=== PATIENT | female | born 1980 | race Caucasian/White ===

== ENCOUNTER → 2021-08-18 15:18 | Outpatient (CLI) | payer OTHER, SELFPAY ==
--- NOTE | ~2021-08-18 | MM_ITS ---
EXAMINATION: MM screening samy BI w shruthi HISTORY: Screening mammogram TECHNIQUE: Craniocaudal and mediolateral oblique 3-D tomosynthesis images were obtained and synthetic 2-D images were generated. CAD analysis was submitted and interpreted. COMPARISON: None, baseline BREAST PARENCHYMAL COMPOSITION: The breasts are heterogeneously dense, which may obscure small masses . FINDINGS: RIGHT BREAST: There is no evidence of suspicious mass, calcification, or architectural distortion to suggest malignancy. LEFT BREAST: An asymmetry is present in the anterior third of the lower breast 3 cm from the nipple o n the mediolateral oblique view. IMPRESSION: 1. Left breast asymmetry. 2. Additional mammographic views and possible breast ultrasound are recommended to evaluate for malig erwin and establish a baseline given that this is the first mammographic examination. BI-RADS Category 0: Incomplete: Needs additional imaging evaluation. Reviewed, dictated and finalized at location A. IMPRESSION: 1. Left breast asymmetry. 2. Additional mammographic views and possible breast ultrasound are recommended to evaluate for malignancy and establish a baseline given that this is the fir st mammographic examination. BI-RADS Category 0: Incomplete: Needs additional imaging evaluation.
== END ==
PROVIDERS: Visit Provider Nurse Practitioner Obstetrics & Gynecology
DX: Z12.31 Encounter for screening mammogram for malignant neoplasm of breast (principal); R92.8 Other abnormal and inconclusive findings on diagnostic imaging of breast
CPT/HCPCS: 77063; 77067

== ENCOUNTER → 2021-10-05 09:28 | Outpatient (CLI) | payer OTHER, SELFPAY ==
--- NOTE | ~2021-10-05 | MMUS_ITS ---
EXAMINATION: MM diagnostic samy LT w shruthi, US breast LT limited HISTORY: Left breast asymmetry on screening mammogram TECHNIQUE: Additional 3-D tomosynthesis images of the left breast were performed and synthetic 2-D im ages were generated. CAD analysis was submitted and interpreted. High resolution limited left breast ultrasound was performed. COMPARISON: 08/18/2021 BREAST PARENCHYMAL COMPOSITION: The breasts are heterogeneously dense, which may obscure small masses . FINDINGS: MAMMOGRAPHIC FINDINGS: No definite asymmetry persists with spot compression of the left breast. There is no suspicious calci fication or architectural distortion. ULTRASOUND: There is no evidence of focal abnormal solid or cystic mass in the vicinity of the mammographic findi ng in question. IMPRESSION: 1. No mammographic or sonographic evidence of malignancy. 2. Recommend routine screening mammography in one year. BI-RADS Category 1: Negative Reviewed, dictated and finalized at location A. FRAME TENDER IMPRESSION: 1. No mammographic or sonographic evidence of malignancy. 2. Recommend routine screening mammography in one year. BI-RADS Category 1: Negative
== END ==
PROVIDERS: PCP Registered Nurse; Visit Provider Nurse Practitioner Obstetrics & Gynecology
DX: R92.8 Other abnormal and inconclusive findings on diagnostic imaging of breast (principal)
CPT/HCPCS: 76642; 77061; 77065; G0279

== ENCOUNTER → 2022-12-21 13:12 | Outpatient (CLI) | payer OTHER, SELFPAY ==
--- NOTE | ~2022-12-21 | MM_ITS ---
EXAMINATION: MM screening samy BI w shruthi HISTORY: Screening mammogram TECHNIQUE: Craniocaudal and mediolateral oblique 3-D tomosynthesis images were obtained and synthetic 2-D images were generated. CAD analysis was submitted and interpreted. COMPARISON: 10/05/2021 diagnostic left mammogram and limited left breast ultrasound examination 08/18/2021 bilateral screening mammogram BREAST PARENCHYMAL COMPOSITION: The breasts are heterogeneously dense, which may obscure small masses . FINDINGS: There is no evidence of suspicious mass, calcification, or architectural distortion to sugg est malignancy in either breast. There has been no suspicious interval change. IMPRESSION: 1. No mammographic evidence of malignancy. 2. Recommend routine screening mammography in one year. BI-RADS Category 1: Negative Reviewed, dictated and finalized at location A. ICE ELECT[employer]ICIAN
== END ==
PROVIDERS: PCP Registered Nurse; Visit Provider Nurse Practitioner Obstetrics & Gynecology
DX: Z12.31 Encounter for screening mammogram for malignant neoplasm of breast (principal)
CPT/HCPCS: 77063; 77067

== ENCOUNTER 2023-04-25 09:58 | Outpatient (CLI) | payer OTHER, SELFPAY ==
--- NOTE | 2023-04-25 10:25 | ECG_ITS ---
Measurements Intervals Spencer Rate: 66 P: 53 NV: 141 QRS: -1 QRSD: 87 T: 40 QT: 388 QTc: 409 Interpretive Statements SINUS RHYTHM BASELINE ARTIFACT BORDERLINE ECG LOW QRS VOLTAGE IN PRECORDIAL LEADS NO PREVIOUS ECG AVAILABLE FOR COMPARISON Electronically Signed On 04-25-2023 17:06:55 CDT by Denny Villarreal M.D.
== END 2023-04-25 09:59 | disposition home or self-care (01) ==
LOC: ANHSURGERY 10:11
PROVIDERS: PCP Registered Nurse; Visit Provider Obstetrics & Gynecology
DX: E78.00 Pure hypercholesterolemia, unspecified (principal); Z01.818 Encounter for other preprocedural examination; R94.31 Abnormal electrocardiogram [ECG] [EKG]
CPT/HCPCS: 93005

== ENCOUNTER 2023-04-27 06:52 | Day surgery (SDC) | payer OTHER, SELFPAY ==
[2023-04-19 15:00] VITALS: BMI 31.6
--- NOTE | 2023-04-19 15:08 | PC.NURSE ---
Report to the Outpatient Waiting Room, entrance under the green pavilion located off [facility], at time 6:30 on date 04/27/23. Planned Procedure Time: 8:30. Time changes happen often and if your time is changed the preop area will call you the afternoon before. - You and your visitor will be asked to self-screen and do not enter if you have any COVID symptoms. - A mask is optional within the hospital at this time. Patients may have clear liquids (water, carbonated beverages, clear teas, apple juice) until 3 hours prior to surgery (5:30) with a maximum of 20 ounces. - No food from midnight until time of surgery Take the following medications with a SIP of water the morning of surgery: NONE DO NOT STOP ANY OF YOUR OTHER PRESCRIPTION MEDICATIONS PRIOR TO SURGERY EXCEPT THE FOLLOWING Medications to discontinue per physician: VITAMINS Date to take last dose: 04/23/23 Please no make-up, nail grenadian, hairspray, perfume, deodorant, or body powder the day of surgery. No jewelry (including any body piercings) or valuables the day of surgery, leave them at home. Please take a shower or bath the night before, or the morning of, surgery with an antibacterial soap. Wear comfortable, loose fitting clothing. - Jewelry must be removed prior to entering the operating room. Rings and piercings that are not removed may be cut off. - The hospital will not accept responsibility for valuables. - Please leave all valuables, including medications, at home the day of surgery. If you are going home after surgery, a licensed route sales driver must drive you home. - NO public transportation without another adult if you receive anesthesia. - We recommend that an adult stay with you for 24 hours following discharge. - We also recommend that you do not drive, make important decision, drink alcoholic beverages, or take any drugs that were not prescribed by your health care provider for at least 24 hours after your discharge time. Follow any additional instructions given to you from your surgeon. If you or anyone in your household have experienced Covid symptoms in the past week, please notify your surgeon or the nurse liaison at the phone number below for possible testing. Telephone instructions given to PT - RADHA LEMUS and asked if any additional questions and then verbalized understanding. Patient advised to call surgeon office or pre surgery nurse liaison [phone] if any additional questions.
--- NOTE | 2023-04-26 14:23 | WPDANESEPPF ---
Anes - Initial Pre Proc Eval Procedure: Operation Date: 04/27/23 09:15 Proposed Procedures p Laparoscopic Bilateral Salpingectomy - David Vargas MD Date/Time: 04/26/23 14:23 Surgeon: David Vargas MD Pre Op Diagnosis: Desires Sterilization Patient Data Age: 42 Gender: F Height: 1.78 m Weight: 99.8 kg Allergies Allergy/AdvReac Type Severity Reaction Status Date / Time No Known Allergies Allergy Verified 04/19/23 14:59 Home Medications Medication Instructions Recorded Confirmed Type multivitamin 1 tablet PO DAILY 04/19/23 04/19/23 History rosuvastatin 10 mg tablet 10 mg PO HS 04/19/23 04/19/23 History Results Review: All pre-operative results and documents have been reviewed as part of the pre-operative evaluation. [facility] Past Medical History Medical History (Updated 04/26/23 @ 14:24 by Garett Galvan MD) Hyperlipidemia Obesity Psoriasis Social History Social History Years smoked: 8 Smoking status: Former smoker Tobacco type: cigarettes Smoking end date: 11/14/16 Alcohol intake: current Alcohol use details: RARE Substance use: never Substance use type: does not use Living arrangements: with family Spiritual care concerns: No Anes - Eval Final PreProcedure Day of Procedure 04/26/23 14:23 Patient weight: obese Heart: regular rate and rhythm Lungs: clear to auscultation and normal air movement Airway: Mallampati scale class II Neurological: alert and oriented Last oral intake: >/= 8 hours ASA classification: II Emergent: no Anesthetic plan: proceed Anesthesia type and monitoring: general ETT Results Review: All pre-operative results and documents have been reviewed as part of the pre-operative evaluation. Informed Consent: The patient's anesthetic plan and its attendant risks and benefits were discussed with the patient/family/POA. Questions were solicited and answers provided to the satisfaction of the patient/family/POA.
--- NOTE | 2023-04-28 12:36 | SUR.PREOP ---
Paper documentation exists on this patient due to [facility] downtime on 04/27/23
--- NOTE | 2023-05-24 10:30 | WPDHPUPDATE1 ---
History and Physical Update Update Date/Time: 05/24/23 10:30 History and Physical has been reviewed, including an updated exam of the patient. There are NO changes in the patient's condition. Risks, benefits, and alternatives have been discussed and questions answered. Patient agrees to proceed with procedure.
--- NOTE | 2023-05-24 11:28 | W.PM.PROC2 ---
Procedure Note - Detailed Date of Procedure 05/24/23 Pre-op Diagnosis Desires Sterilization Post-op Diagnosis Same Procedure Performed Laparoscopic bilateral salpingectomy Surgeon David Vargas MD Anesthesia General Indications Unwanted fertility Findings Normal pelvic anatomy Description of Procedure The patient was taken the operating room. She was prepped and draped in the dorsal lithotomy position after induction of general anesthesia. A 5 mm skin incision was made in the left upper quadrant of the abdominal skin. A 5 mm trocar was inserted the intra-abdominal cavity under direct visualization of the scope. Pneumoperitoneum was achieved. A 5 mm trocar was inserted in the left lower quadrant identical fashion. A 5 mm infraumbilical trocar was inserted in identical fashion as well. The bilateral fallopian tubes were removed. This was done by using a LigaSure cautery. The mesosalpinx adjacent to the tube was cauterized transected with LigaSure. This was initiated in the area the ovary and in a stepwise fashion moved medially to the area of the cornu of the uterus. Once there the fallopian tube was cauterized and transected. This was done in identical fashion on each side. The fallopian tubes were taken out through the left lower quadrant trocar site. The pneumoperitoneum was reduced. The trocars removed. The skin was closed with subcuticular 4 Monocryl and covered with Dermabond. She was taken to cover stable condition. Sponge lap and needle counts were correct x2. Estimated Blood Loss 5 Drains No Packing No Pathology Yes Complications No immediate complications Condition Stable Disposition PACU
== END 2023-04-27 07:30 | disposition home or self-care (01) ==
LOC: ANHSURGERY 05-20 13:53
PROVIDERS: PCP Registered Nurse; Visit Provider Obstetrics & Gynecology
DX: Z30.2 Encounter for sterilization (principal); Z53.8 Procedure and treatment not carried out for other reasons
CPT/HCPCS: 99199

== ENCOUNTER 2023-05-24 04:11 | Day surgery (SDC) | payer OTHER, SELFPAY ==
[2023-05-16 11:44] VITALS: BMI 31.3
--- NOTE | 2023-05-16 11:46 | PC.NURSE ---
Report to the Outpatient Waiting Room, entrance under the green pavilion located off [facility], at time 0815 on date 05/24/23. Planned Procedure Time: 1015. Time changes happen often and if your time is changed the preop area will call you the afternoon before. - You and your visitor will be asked to self-screen and do not enter if you have any COVID symptoms. - A mask is optional within the hospital at this time. Patients may have clear liquids (water, carbonated beverages, clear teas, apple juice) until 3 hours prior to surgery with a maximum of 20 ounces. - No food from midnight until time of surgery Take the following medications with a SIP of water the morning of surgery: NONE DO NOT STOP ANY OF YOUR OTHER PRESCRIPTION MEDICATIONS PRIOR TO SURGERY ?EXCEPT THE FOLLOWING Medications to discontinue per physician: VITAMIN Date to take last dose: 05/20/23 Please no make-up, nail turkish, hairspray, perfume, deodorant, or body powder the day of surgery. No jewelry (including any body piercings) or valuables the day of surgery, leave them at home. Please take a shower or bath the night before, or the morning of, surgery with an antibacterial soap. Wear comfortable, loose fitting clothing. - Jewelry must be removed prior to entering the operating room. Rings and piercings that are not removed may be cut off. - The hospital will not accept responsibility for valuables. - Please leave all valuables, including medications, at home the day of surgery. If you are going home after surgery, a licensed car driver must drive you home. - NO public transportation without another adult if you receive anesthesia. - We recommend that an adult stay with you for 24 hours following discharge. - We also recommend that you do not drive, make important decision, drink alcoholic beverages, or take any drugs that were not prescribed by your health care provider for at least 24 hours after your discharge time. Follow any additional instructions given to you from your surgeon. If you or anyone in your household have experienced Covid symptoms in the past week, please notify your surgeon or the nurse liaison at the phone number below for possible testing. Telephone instructions given to PT - RADHA LEMUS and asked if any additional questions and then verbalized understanding. Patient advised to call surgeon office or pre surgery nurse liaison [phone] if any additional questions.
[2023-05-24 08:32] VITALS: BP 95/66; PULSE 73; RESP 20; TEMP 36.3; O2SAT 98
[2023-05-24] MEDS: ACETAMINOPHEN 500 MG TABLET 1000 MG PO (08:54)
[2023-05-24] MEDS: LACTATED RINGERS 1,000 ML 30 ML IV CONT (09:00)
[2023-05-24] MEDS: KETOROLAC 15 MG/ML VIAL (*BKC) IV PUSH (09:03)
--- NOTE | 2023-05-24 09:26 | WPDANESEPPF ---
Anes - Initial Pre Proc Eval Procedure: Operation Date: 05/24/23 10:15 Proposed Procedures p Bilateral Laparoscopic Salpingectomy - David Vargas MD Date/Time: 05/24/23 09:26 Surgeon: David Vargas MD Pre Op Diagnosis: Desires sterilization Patient Data Age: 43 Gender: F Height: 1.78 m Weight: 98.2 kg Last Vital Signs Temp 36.3 C L 05/24/23 08:32 Pulse 73 05/24/23 08:32 Resp 20 05/24/23 08:32 BP 95/66 L 05/24/23 08:32 Pulse Ox 98 05/24/23 08:32 Allergies Allergy/AdvReac Type Severity Reaction Status Date / Time No Known Allergies Allergy Verified 05/16/23 11:44 Home Medications Medication Instructions Recorded Confirmed Type multivitamin 1 tablet PO DAILY 04/19/23 05/24/23 History rosuvastatin 10 mg tablet 10 mg PO HS 04/19/23 05/24/23 History Patient hx anesthesia problems: none Family hx anesthesia problems: none Results Review: All pre-operative results and documents have been reviewed as part of the pre-operative evaluation. [facility] Past Medical History Medical History Hyperlipidemia Obesity Psoriasis Social History Social History Years smoked: 8 Smoking status: Former smoker Tobacco type: cigarettes Smoking end date: 11/14/16 Alcohol intake: current Alcohol use details: RARE Substance use: never Substance use type: does not use Living arrangements: with family Spiritual care concerns: No Anes - Eval Final PreProcedure Day of Procedure 05/24/23 09:26 Patient weight: obese Heart: regular rate and rhythm Lungs: clear to auscultation Airway: Mallampati scale class II and other (TMJ issues) Neurological: alert and oriented Last oral intake: >/= 8 hours ASA classification: II Emergent: no Anesthetic plan: proceed Anesthesia type and monitoring: general ETT and standard monitoring Results Review: All pre-operative results and documents have been reviewed as part of the pre-operative evaluation. Informed Consent: The patient's anesthetic plan and its attendant risks and benefits were discussed with the patient/family/POA. Questions were solicited and answers provided to the satisfaction of the patient/family/POA.
--- NOTE | 2023-05-24 10:30 | HP_ITS ---
This report was moved to the correct visit on 06/27/2023. Original report was signed by David Vargas MD on 05/24/231029. History and Physical Update Update Date/Time: 05/24/23 10:30 History and Physical has been reviewed, including an updated exam of the patient. There are NO changes in the patient's condition. Risks, benefits, and alternatives have been discussed and questions answered. Patient agrees to proceed with procedure. This report may have been done utilizing a voice recognition system. Attempts have been made to correct errors. However, there may be uncorrected grammatical, spelling, and recognition errors present. Report Initialized date/time: David Vargas MD 05/24/231029 Electronically signed by: David Vargas MD 05/24/231029 [facility]
--- NOTE | 2023-05-24 11:28 | OP_ITS ---
This report was moved to the correct visit, [id number] on 06/22/2023. Original report was signed by David Vargas MD 05/24/[id number]. Procedure Note - Detailed Date of Procedure 05/24/23 Pre-op Diagnosis Desires Sterilization Post-op Diagnosis Same Procedure Performed Laparoscopic bilateral salpingectomy Surgeon David Vargas MD Anesthesia General Indications Unwanted fertility Findings Normal pelvic anatomy Description of Procedure The patient was taken the operating room. She was prepped and draped in the dorsal lithotomy position after induction of general anesthesia. A 5 mm skin incision was made in the left upper quadrant of the abdominal skin. A 5 mm trocar was inserted the intra-abdominal cavity under direct visualization of the scope. Pneumoperitoneum was achieved. A 5 mm trocar was inserted in the left lower quadrant identical fashion. A 5 mm infraumbilical trocar was inserted in identical fashion as well. The bilateral fallopian tubes were removed. This was done by using a LigaSure cautery. The mesosalpinx adjacent to the tube was cauterized transected with LigaSure. This was initiated in the area the ovary and in a stepwise fashion moved medially to the area of the cornu of the uterus. Once there the fallopian tube was cauterized and transected. This was done in identical fashion on each side. The fallopian tubes were taken out through the left lower quadrant trocar site. The pneumoperitoneum was reduced. The trocars removed. The skin was closed with subcuticular 4 Monocryl and covered with Dermabond. She was taken to cover stable condition. Sponge lap and needle counts were correct x2. Estimated Blood Loss 5 Drains No Packing No Pathology Yes Complications No immediate complications Condition Stable Disposition PACU This report may have been done utilizing a voice recognition system. Attempts have been made to correct errors. However, there may be uncorrected grammatical, spelling, and recognition errors present. Report Initialized date/time: David Vargas MD 05/24/231128 Electronically signed by: David Vargas MD 05/24/231128 [facility]
[2023-05-24 11:37] VITALS: BP 107/77; PULSE 103; RESP 16; O2SAT 100
[2023-05-24 11:52] VITALS: BP 100/58; PULSE 65; RESP 19; O2SAT 100
[2023-05-24 12:07] VITALS: BP 104/48; PULSE 56; RESP 14; O2SAT 100
[2023-05-24 12:20] VITALS: BP 105/54; PULSE 45; RESP 16
[2023-05-24 12:50] VITALS: BP 102/62; PULSE 48; RESP 16
== END 2023-05-24 13:10 | disposition home or self-care (01) ==
PROVIDERS: PCP Registered Nurse; Visit Provider Obstetrics & Gynecology
PROC: (CPT 49320; principal; 2023-05-24 10:15)
DX: Z30.2 Encounter for sterilization (principal); N83.8 Other noninflammatory disorders of ovary, fallopian tube and broad ligament; E78.5 Hyperlipidemia, unspecified; E66.9 Obesity, unspecified; Z68.31 Body mass index [BMI] 31.0-31.9, adult; Z87.891 Personal history of nicotine dependence
CPT/HCPCS: 58661; 88302; 93005; A9270; J0330; J1100; J1885; J2250; J2405; J2704; J2710; J3010; J7030; J7120

== ENCOUNTER 2024-11-08 13:07 | Outpatient (CLI) | payer OTHER, SELFPAY ==
--- NOTE | ~2024-11-08 | MM_ITS ---
EXAMINATION: MM screening samy BI w shruthi HISTORY: Screening TECHNIQUE: Craniocaudal and mediolateral oblique 3-D tomosynthesis images were obtained and synthetic 2-D images were generated. CAD analysis was submitted and interpreted. COMPARISON: 12/21/2022 and dating back to 08/18/2021 BREAST PARENCHYMAL COMPOSITION: There are scattered areas of fibroglandular density. FINDINGS: Stable parenchymal pattern without suspicious microcalcifications, architectural distortion, discrete masses or significant asymmetry. IMPRESSION: 1. No mammographic evidence of malignancy. 2. Recommend routine screening mammography in one year. BI-RADS Category 1: Negative Reviewed, dictated and finalized at location A. OBIOLOGY SOIL SCIENTIST
== END 2024-11-08 13:08 | disposition home or self-care (01) ==
LOC: MICIMG 13:08
PROVIDERS: PCP Obstetrics & Gynecology; Visit Provider Registered Nurse
DX: Z12.31 Encounter for screening mammogram for malignant neoplasm of breast (principal)
CPT/HCPCS: 77063; 77067

== ENCOUNTER 2025-11-11 11:31 | Outpatient (CLI) | payer OTHER, SELFPAY ==
--- NOTE | ~2025-11-11 | MM_ITS ---
EXAMINATION: MM screening samy BI w shruthi HISTORY: Screening. TECHNIQUE: Craniocaudal and mediolateral oblique 3-D tomosynthesis images were obtained and synthetic 2-D images were generated. CAD analysis was submitted and interpreted. COMPARISON: 2023, 2022, and 2020. BREAST PARENCHYMAL COMPOSITION: Dense: The breasts are heterogeneously dense, which may obscure small masses. FINDINGS: There is an asymmetry superiorly on the right MLO view. There are no suspicious calcifications. No unexplained architectural distortion is seen. There are no skin or nipple abnormalities identified. There is no adenopathy seen on the images submitted. IMPRESSION: Asymmetry in the right for which additional imaging is recommended. BI-RADS 0 - Incomplete - needs additional imaging evaluation Reviewed, dictated and finalized at location A. [employer] WEAPONS SERGEANT
== END 2025-11-11 11:32 | disposition home or self-care (01) ==
LOC: MICIMG 11:32
PROVIDERS: PCP Obstetrics & Gynecology; Visit Provider Registered Nurse
DX: Z12.31 Encounter for screening mammogram for malignant neoplasm of breast (principal); R92.8 Other abnormal and inconclusive findings on diagnostic imaging of breast
CPT/HCPCS: 77063; 77067